=== PATIENT | male | born 1950 | race Caucasian/White ===

== ENCOUNTER 2018-04-10 11:40 | Emergency (ER) | payer MEDICARE, BC ==
[2018-04-10 11:47] VITALS: RESP 18; TEMP 98.2
[2018-04-10] MEDS ORDERED: ASPIRIN 81 MG PO STA (12:19)
[2018-04-10] MEDS ORDERED: NITROGLYCERIN OINT 1 INCH/GM PACKET TOPICAL STA (12:19)
--- NOTE | 2018-04-10 12:22 | ED ---
General Adult HPI - General Chief complaint: Chest Pain Stated complaint: CHEST PAIN Time Seen by Provider: 04/10/18 11:45 Source: patient, RN notes reviewed Mode of arrival: wheelchair Limitations: no limitations - History of Present Illness Initial comments: This is a 67-year-old male who presents emergency Department complaining of chest pain. Patient states about 2 hours ago began. Patient states it was a pressure sensation. Patient thought it was possibly just gas we took some Tums and Pepcid and it did not seem to help. Patient states he also. Quite a bit but is not sure if that made any difference either. Patient states currently is chest pain-free. Patient states the pain did radiate to his back. Patient denies any radiation to his neck or arm. Patient does any shortness of breath or difficulty breathing. Patient denies any diaphoresis. Patient denies any nausea vomiting. Patient denies abdominal pain patient denies any back pain. Patient denies any recent fever chills or cough. Patient denies lightheadedness dizziness or near syncopal episode. Patient denies headache patient denies numbness weakness. Patient denies any swelling in the legs patient denies any calf tenderness. - Related Data Home Medications Medication Instructions Recorded Confirmed Aspirin 81 mg PO DAILY 03/10/15 04/10/18 Fish Oil(Dose Unknown) 1 tab PO DAILY 03/10/15 04/10/18 Multivitamins, Thera [Theragran] 1 tab PO DAILY 03/10/15 04/10/18 Sertraline [Zoloft] 100 mg PO DAILY 03/10/15 04/10/18 Simvastatin [Zocor] 40 mg PO DAILY 03/10/15 04/10/18 Levothyroxine Sodium [Synthroid] 25 mcg PO DAILY 04/10/18 04/10/18 Triamcinolone 0.1% Cream [Kenalog 1 applicatio TOPICAL BID 04/10/18 04/10/18 0.1% Cream] Allergies Allergy/AdvReac Type Severity Reaction Status Date / Time No Known Allergies Allergy Verified 04/10/18 12:28 Review of Systems ROS Statement: Those systems with pertinent positive or pertinent negative responses have been documented in the HPI. ROS Other: All systems not noted in ROS Statement are negative. Past Medical History Past Medical History: Fibromyalgia, Hyperlipidemia Additional Past Medical History / Comment(s): arthritis History of Any Multi-Drug Resistant Organisms: None Reported Past Surgical History: Back Surgery, Orthopedic Surgery Additional Past Surgical History / Comment(s): back x 2, rt shoulder rotator cuff Past Anesthesia/Blood Transfusion Reactions: No Reported Reaction Past Psychological History: Depression Smoking Status: Never smoker Past Alcohol Use History: None Reported Past Drug Use History: None Reported - Past Family History Mother Family Medical History: No Reported History General Exam - General Exam Comments Initial Comments: GENERAL: Patient is well-developed and well-nourished. Patient is nontoxic and well- hydrated and is in no acute distress. ENT: Neck is soft and supple. No significant lymphadenopathy is noted. Oropharynx is clear. Moist mucous membranes. Neck has full range of motion without eliciting any pain. EYES: The sclera were anicteric and conjunctiva were pink and moist. Extraocular movements were intact and pupils were equal round and reactive to light. Eyelids were unremarkable. PULMONARY: Unlabored respirations. Good breath sounds bilaterally. No audible rales rhonchi or wheezing was noted. CARDIOVASCULAR: There is a regular rate and rhythm without any murmurs gallops or rubs. ABDOMEN: Soft and nontender with normal bowel sounds. SKIN: Skin is clear with no lesions or rashes and otherwise unremarkable. NEUROLOGIC: Patient is alert and oriented x3. Cranial nerves II through XII are grossly intact. Motor and sensory are also intact. Normal speech, volume and content. Symmetrical smile. MUSCULOSKELETAL: Normal extremities with adequate strength and full range of motion. LYMPHATICS: No significant lymphadenopathy is noted PSYCHIATRIC: Normal psychiatric evaluation. Limitations: no limitations Course Vital Signs 04/10/18 04/10/18 11:45 12:53 Temperature 98.2 F Pulse Rate 71 62 Respiratory 18 18 Rate Blood Pressure 133/80 167/79 O2 Sat by Pulse 97 97 Oximetry Medical Decision Making - Medical Decision Making EKG shows normal sinus rhythm at 63 bpm [place] interval is 154 QRS is 88 QT interval 398 QTC is 47. Patient's EKG shows no ST segment elevation or depression or T wave abnormalities are noted. Chest x-ray shows no acute abnormality. Patient's labs were all normal I discussed with the patient the results I told him I recommended him stay his was in the room he turned down the opportunity to stay I told him there was a risk that he could go out and have worsening symptoms possible heart attack or and he indicated he would follow-up with his primary medical care doctor. Patient signed out AMA - Lab Data Result diagrams: 04/10/18 12:05 04/10/18 12:58 Lab Results 04/10/18 04/10/18 04/10/18 Range/Units 12:05 12:05 12:58 WBC 6.8 (3.8-10.6) k/uL RBC 5.27 (4.30-5.90) m/uL Hgb 14.9 (13.0-17.5) gm/dL Hct 45.6 (39.0-53.0) % MCV 86.5 (80.0-100.0) fL MCH 28.3 (25.0-35.0) pg MCHC 32.8 (31.0-37.0) g/dL RDW 13.5 (11.5-15.5) % Plt Count 218 (150-450) k/uL Neutrophils % 72 % Lymphocytes % 17 % Monocytes % 7 % Eosinophils % 3 % Basophils % 1 % Neutrophils # 4.9 (1.3-7.7) k/uL Lymphocytes # 1.1 (1.0-4.8) k/uL Monocytes # 0.5 (0-1.0) k/uL Eosinophils # 0.2 (0-0.7) k/uL Basophils # 0.0 (0-0.2) k/uL PT 10.3 (9.0-12.0) sec INR 1.1 (<1.2) APTT 21.9 L (22.0-30.0) sec Sodium (137-145) mmol/L Potassium (3.5-5.1) mmol/L Chloride (98-107) mmol/L Carbon Dioxide (22-30) mmol/L Anion Gap mmol/L BUN (9-20) mg/dL Creatinine (0.66-1.25) mg/dL Est GFR (CKD-EPI)AfAm (>60 ml/min/1.73 sqM) Est GFR (CKD-EPI)NonAf (>60 ml/min/1.73 sqM) Glucose (74-99) mg/dL Calcium (8.4-10.2) mg/dL Total Bilirubin (0.2-1.3) mg/dL AST (17-59) U/L ALT (21-72) U/L Alkaline Phosphatase (38-126) U/L Total Creatine Kinase 80 (55-170) U/L CK-MB (CK-2) 1.5 (0.0-2.4) ng/mL CK-MB (CK-2) Rel Index 1.9 Troponin I <0.012 (0.000-0.034) ng/mL Total Protein (6.3-8.2) g/dL Albumin (3.5-5.0) g/dL 04/10/18 Range/Units 12:58 WBC (3.8-10.6) k/uL RBC (4.30-5.90) m/uL Hgb (13.0-17.5) gm/dL Hct (39.0-53.0) % MCV (80.0-100.0) fL MCH (25.0-35.0) pg MCHC (31.0-37.0) g/dL RDW (11.5-15.5) % Plt Count (150-450) k/uL Neutrophils % % Lymphocytes % % Monocytes % % Eosinophils % % Basophils % % Neutrophils # (1.3-7.7) k/uL Lymphocytes # (1.0-4.8) k/uL Monocytes # (0-1.0) k/uL Eosinophils # (0-0.7) k/uL Basophils # (0-0.2) k/uL PT (9.0-12.0) sec INR (<1.2) APTT (22.0-30.0) sec Sodium 141 (137-145) mmol/L Potassium 4.2 (3.5-5.1) mmol/L Chloride 106 (98-107) mmol/L Carbon Dioxide 28 (22-30) mmol/L Anion Gap 7 mmol/L BUN 14 (9-20) mg/dL Creatinine 0.70 (0.66-1.25) mg/dL Est GFR (CKD-EPI)AfAm >90 (>60 ml/min/1.73 sqM) Est GFR (CKD-EPI)NonAf >90 (>60 ml/min/1.73 sqM) Glucose 93 (74-99) mg/dL Calcium 9.9 (8.4-10.2) mg/dL Total Bilirubin 0.4 (0.2-1.3) mg/dL AST 28 (17-59) U/L ALT 38 (21-72) U/L Alkaline Phosphatase 85 (38-126) U/L Total Creatine Kinase (55-170) U/L CK-MB (CK-2) (0.0-2.4) ng/mL CK-MB (CK-2) Rel Index Troponin I (0.000-0.034) ng/mL Total Protein 7.5 (6.3-8.2) g/dL Albumin 4.4 (3.5-5.0) g/dL Disposition Clinical Impression: Unstable angina pectoris Disposition: Left Against Medical Advice Referrals: Adam Osorio MD [Primary Care Provider] - 1-2 days Time of Disposition: 14:05
[2018-04-10 12:50] LABS: Basophils % (A) 1 %; Eosinophils # (A) 0.2 k/uL (0-0.7); Eosinophils % (A) 3 %; HCT 45.6 % (39.0-53.0); HGB 14.9 gm/dL (13.0-17.5); Lymphocytes # (A) 1.1 k/uL (1.0-4.8); Lymphocytes % (A) 17 %; MCH 28.3 pg (25.0-35.0); MCHC 32.8 g/dL (31.0-37.0); MCV 86.5 fL (80.0-100.0); Mean Platelet Volume 7.3; Monocytes # (A) 0.5 k/uL (0-1.0); Monocytes % (A) 7 %; Neutrophils # (A) 4.9 k/uL (1.3-7.7); Neutrophils % (A) 72 %; Platelet Count 218 k/uL (150-450); RBC 5.27 m/uL (4.30-5.90); RDW 13.5 % (11.5-15.5); WBC 6.8 k/uL (3.8-10.6)
--- NOTE | 2018-04-10 13:17 | XR ---
EXAMINATION TYPE: XR chest 2V DATE OF EXAM: 04/10/2018 COMPARISON: NONE HISTORY: Chest pain TECHNIQUE: Frontal and lateral views of the chest are obtained. FINDINGS: There is no focal air space opacity, pleural effusion, or pneumothorax seen. The cardiac silhouette size is within normal limits. The osseous structures are intact. There are overlying car diac leads. Question resection of distal right clavicle, postop changes noted suture anchor is noted within the proximal right humerus. IMPRESSION: No acute cardiopulmonary process.
[2018-04-10 13:20] LABS: INR 1.1 (<1.2); Prothrombin Time 10.3 sec (9.0-12.0)
[2018-04-10 13:23] LABS: ALT 38 U/L (21-72); AST 28 U/L (17-59); Albumin 4.4 g/dL (3.5-5.0); Alkaline Phosphatase 85 U/L (38-126); Anion Gap 7 mmol/L; Blood Urea Nitrogen 14 mg/dL (9-20); Calcium 9.9 mg/dL (8.4-10.2); Carbon Dioxide 28 mmol/L (22-30); Chloride 106 mmol/L (98-107); Glucose 93 mg/dL (74-99); Potassium 4.2 mmol/L (3.5-5.1); Sodium 141 mmol/L (137-145); Total Bilirubin 0.4 mg/dL (0.2-1.3); Total Protein 7.5 g/dL (6.3-8.2)
[2018-04-10 13:28] LABS: Partial Thromboplastin Time 21.9 sec (22.0-30.0)
[2018-04-10 13:43] LABS: Creatine Kinase 80 U/L (55-170)
[2018-04-10 13:57] LABS: Creatine Kinase MB 1.5 ng/mL (0.0-2.4); Troponin I <0.012 ng/mL (0.000-0.034)
[2018-04-10 14:15] VITALS: BP 132/72; PULSE 79
== END 2018-04-10 14:15 | disposition left against medical advice (07) ==
LOC: EC 11:40
DX: I20.0 Unstable angina (principal); E78.5 Hyperlipidemia, unspecified; M19.90 Unspecified osteoarthritis, unspecified site; F32.9 Major depressive disorder, single episode, unspecified; Z79.52 Long term (current) use of systemic steroids; Z79.82 Long term (current) use of aspirin; Z79.899 Other long term (current) drug therapy; Z98.890 Other specified postprocedural states
CPT/HCPCS: 36415; 71046; 80053; 82550; 82553; 84484; 85025; 85610; 85730; 93005; 99285

== ENCOUNTER → 2020-02-24 | Day surgery (SDC) | payer MEDICARE, BC ==
[2020-02-18 16:03] VITALS: BMI 26.4
[~2020-02-24] MED LIST: LACTATED RINGERS 1,000 ML IV ONE; LACTATED RINGERS 1,000 ML IV SCH; LIDOCAINE 1% (10MG/ML) FOR IV START INTRADERMA PRN; MIDAZOLAM 2 MG/2 ML VIAL ONE; PROPOFOL 10 MG/ML 20 ML VIAL IV ONE; fentaNYL (PF) 50 MCG/ML 2 ML AMP ONE
--- NOTE | 2020-02-24 08:07 | P.GSHP ---
History of Present Illness H&P Date: 02/24/20 CHIEF COMPLAINT: Colon screen HISTORY OF PRESENT ILLNESS: The patient is a 69-year-old male who presents for colon screen. Lower endoscopy was offered for further evaluation and management. PAST MEDICAL HISTORY: Please see list. PAST SURGICAL HISTORY: Please see list. MEDICATIONS: Please see list. ALLERGIES: Please see list. SOCIAL HISTORY: No illicit drug use FAMILY HISTORY: No reports of Crohn disease or ulcerative colitis. REVIEW OF ORGAN SYSTEMS: CONSTITUTIONAL: No reports of fevers or chills. PHYSICAL EXAM: VITAL SIGNS: Stable GENERAL: Well-developed pleasant in no acute distress. HEENT: No scleral icterus. Extraocular movements grossly intact. Moist buccal mucosa. NECK: Supple without lymphadenopathy. CHEST: Unlabored respirations. Equal bilateral excursions. CARDIOVASCULAR: Regular rate and rhythm. Distal 2+ pulses. ABDOMEN: Soft, nontender, nondistended. MUSCULOSKELETAL: No clubbing, cyanosis, or edema. ASSESSMENT: 1. Colon screen. PLAN: 1. Recommend proceeding with a lower endoscopy Past Medical History Past Medical History: Fibromyalgia, Hyperlipidemia, Hypertension Additional Past Medical History / Comment(s): arthritis History of Any Multi-Drug Resistant Organisms: None Reported Past Surgical History: Back Surgery, Orthopedic Surgery Additional Past Surgical History / Comment(s): back x 2, rt shoulder rotator cuff Past Anesthesia/Blood Transfusion Reactions: No Reported Reaction Smoking Status: Never smoker - Past Family History Mother Family Medical History: No Reported History Medications and Allergies Home Medications Medication Instructions Recorded Confirmed Type Multivitamins, Thera [Theragran] 1 tab PO DAILY 03/10/15 02/18/20 History Sertraline [Zoloft] 100 mg PO DAILY 03/10/15 02/18/20 History Simvastatin [Zocor] 40 mg PO DAILY 03/10/15 02/18/20 History Aspirin 1 - 2 dose PO HS 02/18/20 02/18/20 History [place]-3 Fatty Acids/Fish Oil [Fish 1 each PO DAILY 02/18/20 02/18/20 History Oil 1,000 mg Softgel] amLODIPine [Norvasc] 5 mg PO HS 02/18/20 02/18/20 History Allergies Allergy/AdvReac Type Severity Reaction Status Date / Time No Known Allergies Allergy Verified 02/18/20 15:53
--- NOTE | 2020-02-24 09:38 | P.PCN ---
Date of Procedure: 02/24/20 Description of Procedure: PREOPERATIVE DIAGNOSIS: Personal history of colon polyps High risk colonoscopy screening POSTOPERATIVE DIAGNOSIS: Tubular adenoma hepatic flexure Moderate constipation Sigmoid diverticulosis Internal hemorrhoids, grade 2 OPERATION: Colonoscopy to the ileocecal valve and appendiceal orifice, cecum Colonoscopy with hot snare polypectomy SURGEON: Debora Jackson MD. ANESTHESIA: MAC. INDICATIONS: The patient is an 69-year-old male with personal history of colon polyps. Last colonoscopy 5 years. Benefits and risks were described and informed consent was obtained. DESCRIPTION OF PROCEDURE: The patient had undergone Suprep. He had been brought into the operating room and laid in the left lateral decubitus position. After adequate intravenous sedation, the rectum was examined with 2% lidocaine jelly. The prostate was unremarkable. External hemorrhoids were encountered. The rectal tone was within normal limits. No lesions were palpated in the rectal vault. An Olympus colonoscope was advanced until the cecum, ileocecal valve and appendiceal orifice were clearly viewed. The prep was poor with moderate seeds identified. Sigmoid diverticulosis was encountered with redundant sigmoid colon requiring abdominal wall pressure. Limitation of the mucosa was caused by stool debris from a poor prep. Hepatic flexure 8 mm polyp was removed with snare polypectomy. No evidence of focal colitis was found. Retroflexion of the scope demonstrated grade 2 internal hemorrhoids without active bleeding or inflammation. The colon was desufflated. The patient had tolerated the procedure well. Withdrawal time was over 6 minutes. FINDINGS: Aronchick preparation quality scale 4 (1-5) Internal hemorrhoids, grade 2 External hemorrhoids, grade 2 No arteriovenous malformations. Sigmoid diverticulosis with redundant sigmoid colon Removal of 1 polyp: - Snare polypectomy hepatic flexure, 8 mm tubulovillous adenoma polyp. No focal colitis. RECOMMENDATIONS: Recommend clear liquid diet prep for at least 2 days with repeat colonoscopy in 2 years, 2021 Plan - Discharge Summary Discharge Rx Participant: No New Discharge Prescriptions: Continue Simvastatin [Zocor] 40 mg PO DAILY Sertraline [Zoloft] 100 mg PO DAILY Multivitamins, Thera [Multivitamin (formulary)] 1 tab PO DAILY amLODIPine [Norvasc] 5 mg PO HS [place]-3 Fatty Acids/Fish Oil [Fish Oil 1,000 mg Softgel] 1 each PO DAILY Aspirin 1 - 2 dose PO HS Discharge Medication List Multivitamins, Thera [Multivitamin (formulary)] 1 tab PO DAILY 03/10/15 [History] Sertraline [Zoloft] 100 mg PO DAILY 03/10/15 [History] Simvastatin [Zocor] 40 mg PO DAILY 03/10/15 [History] Aspirin 1 - 2 dose PO HS 02/18/20 [History] [place]-3 Fatty Acids/Fish Oil [Fish Oil 1,000 mg Softgel] 1 each PO DAILY 02/18/20 [History] amLODIPine [Norvasc] 5 mg PO HS 02/18/20 [History] Follow up Appointment(s)/Referral(s): Debora Jackson MD [STAFF PHYSICIAN] - 03/08/20 Patient Instructions/Handouts: Diverticulosis (DC), Colorectal Polyps (DC), Diverticulosis Diet (GEN) Activity/Diet/Wound Care/Special Instructions: Repeat colonoscopy in 2 years, 2021. Strict liquid diet for 2 days prior to colonoscopy. NO SEEDS! Discharge Disposition: HOME SELF-CARE
[2020-02-26 06:17] VITALS: BP 116/67; PULSE 67; RESP 16; TEMP 97.8
== END | disposition home or self-care (01) ==
LOC: ORWHC2ENDO 07:58
PROVIDERS: ATTEND Surgery Plastic and Reconstructive Surgery
DX: Z12.11 Encounter for screening for malignant neoplasm of colon (principal); D12.3 Benign neoplasm of transverse colon; K59.00 Constipation, unspecified; K57.30 Diverticulosis of large intestine without perforation or abscess without bleeding; K64.1 Second degree hemorrhoids; K64.4 Residual hemorrhoidal skin tags; Q43.8 Other specified congenital malformations of intestine; Z86.010 Personal history of colon polyps; M79.7 Fibromyalgia; E78.5 Hyperlipidemia, unspecified; I10 Essential (primary) hypertension; M19.90 Unspecified osteoarthritis, unspecified site; F32.9 Major depressive disorder, single episode, unspecified; Z98.890 Other specified postprocedural states; Z87.39 Personal history of other diseases of the musculoskeletal system and connective tissue; Z79.899 Other long term (current) drug therapy; Z79.82 Long term (current) use of aspirin
CPT/HCPCS: 88305; 45385; J2250; J3010; J2704

== ENCOUNTER 2022-04-21 15:32 | Emergency (ER) | payer MEDICARE, BC ==
[2022-04-21 16:09] VITALS: RESP 16; TEMP 97.1
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
[2022-04-21 18:05] VITALS: BP 138/72; PULSE 72
== END 2022-04-21 18:04 | disposition home or self-care (01) ==
LOC: EC 15:32
DX: S09.90XA Unspecified injury of head, initial encounter (principal); I10 Essential (primary) hypertension; E78.5 Hyperlipidemia, unspecified; Z79.899 Other long term (current) drug therapy; V89.2XXA Person injured in unspecified motor-vehicle accident, traffic, initial encounter
CPT/HCPCS: 70450; 99283

== ENCOUNTER → 2022-05-22 | Outpatient (CLI) | payer MEDICARE, BC ==
--- NOTE | 2022-05-22 12:28 | CA ---
Stress Echo Report Michael Wharton Age: 71 Gender: M : 1950 Exam Date: 05/22/2022 10:03 Exam Location: [facility] Ht (in): 66 Wt (lb): 163 Ordering Physician: Chuy Grant MD Referring Physician: Chuy Grant MD Tray Server: CHANO Technologist Procedure CPT: Indication: R07.9 CHEST PAIN ICD-9 Codes: Rhythm: Patient History: Cardiac Medications: Medications in past 24 hours: Contrast: Stress Results Protocol: Obdulio Total dose(mL): Exercise Duration (min:sec): 6:[address] Depression (mm): Angina Score: Ortez Score: METS: 7.1 Resting HR: 58 Resting BP: 159 / 86 Peak HR: 134 Peak BP: 201 / 62 Max Predicted HR: 151 89 % Max Predicted HR Target HR: 128 Double Product: [id number] Stress Summary: BP Response: Reason for Termination: Reached target heart rate or work-load Cardiac Symptoms: NO SYMPTOMS ECG Analysis Resting ECG: Normal sinus rhythm, normal ECG Stress ECG: No abnormal ST/T wave changes with exercise Arrhythmia: None Echo Analysis Resting Echo: Normal global and regional wall motion at rest with a left ventricular ejection fraction of 55- 60 %. Peak Echo Analysis: Normal global and regional wall motion with stress with a left ventricular ejection fraction of 60- 65 %. MEASUREMENTS (Male/Female) Normal Values CONCLUSIONS 1. Average exercise tolerance 2. Normal electrocardiographic response to exercise 3. Normal stress echocardiogram with no evidence of stress induced ischemia. Dr. Alexandra Mckeon MD (Electronically Signed) Final Date: 22 May 2022 12:27
== END | disposition home or self-care (01) ==
LOC: RADNMMAIN 09:28
PROVIDERS: ATTEND Internal Medicine
DX: R07.9 Chest pain, unspecified (principal)
CPT/HCPCS: 93351